=== PATIENT | male | born 1940 | race Caucasian/White ===

== ENCOUNTER 2020-01-06 14:19 | Inpatient (IN) | payer OTHER, SELFPAY ==
[~2020-01-06] VITALS: Ht 182.9 cm; Wt 59.0 kg
[2020-01-06 14:36] VITALS: Ht 182.9 cm; Wt 59.0 kg
[2020-01-06 15:29] LABS: ALKALINE PHOSPHATASE 57 U/L (46-116); ALT/SGPT 34 U/L (16-63); AST/SGOT 46 U/L (15-37); BILIRUBIN TOTAL 0.8 mg/dL (0.20-1.00); CALCIUM 9.1 mg/dL (8.5-10.1); CARBON DIOXIDE 22.3 mmol/L (21-32); CHLORIDE SERUM 103 mmol/L (98-107); GLUCOSE SERUM 154 mg/dL (74-106); LACTIC DEHYDROGENASE (LDH) 298 U/L (100-190); SODIUM SERUM 140 mmol/L (136-145); TOTAL PROTEIN, SERUM 7.2 g/dL (6.4-8.2)
[2020-01-06 15:32] LABS: ALBUMIN 2.7 g/dL (3.4-5.0); CREATININE SERUM 5.7 mg/dL (0.7-1.3)
[2020-01-06 15:39] LABS: PLATELET COUNT 127 x10^3mcL (130-400); RED CELL DISTRIBUTION WIDTH 16.7 % (11.5-14.5)
[2020-01-06 15:40] LABS: UA SPECIFIC GRAVITY <=1.005 (1.005-1.035); microscopic required? YES; urine erythrocyte 3+ (NEGATIVE)
[2020-01-06 16:36] LABS: C REACTIVE PROTEIN 45.4 mg/dL (<=0.9)
[2020-01-06 16:40] LABS: BAND NEUTROPHIL 9 % (0-10); BASOPHIL 0 % (0-2); MONOCYTE 3 % (0-7); SEGMENTED NEUTROPHILS 86 % (37-75); rbc morphology (normal/abnorm) ABNORMAL (NORMAL)
[2020-01-06 16:41] LABS: PLATELET MORPHOLOGY PLATELETS DECREASED
[2020-01-06 21:15] LABS: MAGNESIUM 1.9 mg/dL (1.8-2.4)
[2020-01-06 21:17] LABS: CHOLESTEROL/HDL RATIO 3.7
[2020-01-06 23:01] VITALS: BP 83/52
[2020-01-07 06:58] LABS: BASOPHIL % 0.2 % (0-2)
[2020-01-07 07:14] LABS: PLATELET COUNT 110 x10^3mcL (130-400); RED CELL DISTRIBUTION WIDTH 16.8 % (11.5-14.5)
[2020-01-07 07:53] LABS: CALCIUM 8.6 mg/dL (8.5-10.1); CARBON DIOXIDE 17.1 mmol/L (21-32); CHLORIDE SERUM 106 mmol/L (98-107); GLUCOSE SERUM 129 mg/dL (74-106); POTASSIUM SERUM 4.9 mmol/L (3.5-5.1); SODIUM SERUM 140 mmol/L (136-145)
[2020-01-07 07:54] LABS: CREATININE SERUM 5.2 mg/dL (0.7-1.3)
[2020-01-07 08:00] VITALS: BP 105/60
[2020-01-07 12:00] VITALS: BP 121/65
[2020-01-07] MEDS ORDERED: ASPIR 8181 MG PO (12:42)
[2020-01-07] MEDS ORDERED: FINASTERIDE1 MG PO (12:44)
[2020-01-07] MEDS ORDERED: ATORVASTATIN CA40 M1 PO (12:44)
[2020-01-07] MEDS ORDERED: COUMADIN3 MG PO (12:45)
[2020-01-07] MEDS ORDERED: TOPROL XL200 MG (12:46)
[2020-01-07] MEDS ORDERED: REFRESH OPTIVE15 M1 OU (12:49)
[2020-01-07] MEDS ORDERED: CALCIUM 500 MG1 EAC2 PO (12:52)
[2020-01-07] MEDS ORDERED: FLOMAX0.4 MG PO (12:53)
[2020-01-07 16:00] VITALS: BP 120/58
[2020-01-07 20:00] VITALS: BP 101/49
[2020-01-08] VITALS (7 sets, daily range): BP systolic 112–131; BP diastolic 56–72
[2020-01-08 09:16] LABS: PLATELET COUNT 74 x10^3mcL (130-400); RED CELL DISTRIBUTION WIDTH 16.9 % (11.5-14.5)
[2020-01-08 09:46] LABS: ALKALINE PHOSPHATASE 78 U/L (46-116); ALT/SGPT 123 U/L (16-63); AST/SGOT 172 U/L (15-37); BILIRUBIN TOTAL 0.89 mg/dL (0.20-1.00); CALCIUM 7.9 mg/dL (8.5-10.1); CARBON DIOXIDE 23.3 mmol/L (21-32); CHLORIDE SERUM 109 mmol/L (98-107); GLUCOSE SERUM 93 mg/dL (74-106); PHOSPHOROUS 4.5 mg/dL (2.5-4.9); POTASSIUM SERUM 3.5 mmol/L (3.5-5.1); SODIUM SERUM 146 mmol/L (136-145)
[2020-01-08 09:47] LABS: ALBUMIN 2.1 g/dL (3.4-5.0); CREATININE SERUM 4.3 mg/dL (0.7-1.3); TOTAL PROTEIN, SERUM 5.8 g/dL (6.4-8.2)
[2020-01-08 11:50] LABS: rbc morphology (normal/abnorm) ABNORMAL (NORMAL)
[2020-01-09 04:38] VITALS: BP 139/73
[2020-01-09 08:13] VITALS: BP 131/62
[2020-01-09 09:29] LABS: BASOPHIL % 0.3 % (0-2)
[2020-01-09 09:36] LABS: PLATELET COUNT 61 x10^3mcL (130-400); RED CELL DISTRIBUTION WIDTH 16.7 % (11.5-14.5)
[2020-01-09 09:55] LABS: CALCIUM 7.4 mg/dL (8.5-10.1); CARBON DIOXIDE 30.7 mmol/L (21-32); CHLORIDE SERUM 110 mmol/L (98-107); CREATININE SERUM 3.4 mg/dL (0.7-1.3); GLUCOSE SERUM 133 mg/dL (74-106); SODIUM SERUM 149 mmol/L (136-145)
[2020-01-09 10:00] LABS: POTASSIUM SERUM 2.8 mmol/L (3.5-5.1)
[2020-01-09 19:10] VITALS: BP 132/72
[2020-01-09 20:05] VITALS: BP 116/67
[2020-01-10 05:05] VITALS: BP 124/70
[2020-01-10 07:30] LABS: BASOPHIL % 0.1 % (0-2)
[2020-01-10 07:40] VITALS: BP 138/65
[2020-01-10 07:52] LABS: ALKALINE PHOSPHATASE 82 U/L (46-116); ALT/SGPT 78 U/L (16-63); AST/SGOT 56 U/L (15-37); BILIRUBIN TOTAL 0.57 mg/dL (0.20-1.00); CALCIUM 7.7 mg/dL (8.5-10.1); CARBON DIOXIDE 28.8 mmol/L (21-32); CHLORIDE SERUM 108 mmol/L (98-107); GLUCOSE SERUM 132 mg/dL (74-106); SODIUM SERUM 146 mmol/L (136-145)
[2020-01-10 07:54] LABS: RED CELL DISTRIBUTION WIDTH 16.3 % (11.5-14.5)
[2020-01-10 07:55] LABS: ALBUMIN 1.8 g/dL (3.4-5.0); TOTAL PROTEIN, SERUM 5.4 g/dL (6.4-8.2)
[2020-01-10 07:56] LABS: PLATELET COUNT 43 x10^3mcL (130-400)
[2020-01-10 07:58] LABS: POTASSIUM SERUM 2.9 mmol/L (3.5-5.1)
[2020-01-10 11:58] VITALS: BP 106/63
[2020-01-10 16:09] VITALS: BP 120/69
[2020-01-10 20:42] VITALS: BP 122/59
[2020-01-11 06:04] VITALS: BP 113/61
[2020-01-11 07:26] LABS: ALBUMIN 1.7 g/dL (3.4-5.0); ALKALINE PHOSPHATASE 99 U/L (46-116); AST/SGOT 45 U/L (15-37); BILIRUBIN TOTAL 0.56 mg/dL (0.20-1.00); CALCIUM 7.7 mg/dL (8.5-10.1); CARBON DIOXIDE 26.2 mmol/L (21-32); CHLORIDE SERUM 107 mmol/L (98-107); CREATININE SERUM 2.7 mg/dL (0.7-1.3); GLUCOSE SERUM 85 mg/dL (74-106); MAGNESIUM 1.6 mg/dL (1.8-2.4); PHOSPHOROUS 2.7 mg/dL (2.5-4.9); POTASSIUM SERUM 3.5 mmol/L (3.5-5.1); SODIUM SERUM 144 mmol/L (136-145); TOTAL PROTEIN, SERUM 5.2 g/dL (6.4-8.2)
[2020-01-11 07:28] LABS: ALT/SGPT 59 U/L (16-63)
[2020-01-11 07:39] LABS: RED CELL DISTRIBUTION WIDTH 16.2 % (11.5-14.5)
[2020-01-11 07:40] LABS: BASOPHIL % 0 % (0-2)
[2020-01-11 07:41] LABS: PLATELET COUNT 31 x10^3mcL (130-400)
[2020-01-11 08:22] VITALS: BP 121/65
[2020-01-11 11:25] VITALS: BP 126/63
[2020-01-11 13:08] LABS: CK-BB 4 % (0); CK-MB 0 % (0-3); CK-MM 96 % (97-100); MACRO TYPE 1 0 % (Not Observed); MACRO TYPE 2 0 % (Not Observed)
[2020-01-11 17:39] VITALS: BP 114/61
[2020-01-11 21:12] VITALS: BP 104/62
[2020-01-12 06:02] VITALS: BP 135/78
[2020-01-12 07:25] LABS: BASOPHIL % 0.1 % (0-2)
[2020-01-12 07:36] LABS: CALCIUM 7.8 mg/dL (8.5-10.1); CARBON DIOXIDE 26.3 mmol/L (21-32); CHLORIDE SERUM 108 mmol/L (98-107); CREATININE SERUM 2.3 mg/dL (0.7-1.3); GLUCOSE SERUM 91 mg/dL (74-106); POTASSIUM SERUM 3.8 mmol/L (3.5-5.1); SODIUM SERUM 143 mmol/L (136-145)
[2020-01-12 07:48] VITALS: BP 134/68
[2020-01-12 08:17] LABS: PLATELET COUNT 58 x10^3mcL (130-400)
[2020-01-12 11:42] VITALS: BP 121/60
[2020-01-12 15:59] VITALS: BP 119/59
[2020-01-12 20:01] VITALS: BP 121/55
[2020-01-13 05:50] VITALS: BP 128/69
[2020-01-13 07:55] LABS: BASOPHIL % 0.2 % (0-2); PLATELET COUNT 78 x10^3mcL (130-400); RED CELL DISTRIBUTION WIDTH 15.9 % (11.5-14.5)
[2020-01-13 07:59] LABS: CALCIUM 7.7 mg/dL (8.5-10.1); CARBON DIOXIDE 24.1 mmol/L (21-32); CHLORIDE SERUM 108 mmol/L (98-107); CREATININE SERUM 2.2 mg/dL (0.7-1.3); GLUCOSE SERUM 99 mg/dL (74-106); POTASSIUM SERUM 4.1 mmol/L (3.5-5.1); SODIUM SERUM 143 mmol/L (136-145)
[2020-01-13 08:27] VITALS: BP 124/67
[2020-01-13 12:14] VITALS: BP 101/60
[2020-01-13 17:03] VITALS: BP 138/67
[2020-01-13 22:23] VITALS: BP 117/45
[2020-01-14 05:55] VITALS: BP 115/67
[2020-01-14 07:49] LABS: CALCIUM 7.6 mg/dL (8.5-10.1); CHLORIDE SERUM 109 mmol/L (98-107); CREATININE SERUM 1.8 mg/dL (0.7-1.3); GLUCOSE SERUM 90 mg/dL (74-106); POTASSIUM SERUM 4.4 mmol/L (3.5-5.1); SODIUM SERUM 140 mmol/L (136-145)
[2020-01-14 08:12] LABS: BASOPHIL % 4.1 % (0-2); PLATELET COUNT 108 x10^3mcL (130-400); RED CELL DISTRIBUTION WIDTH 15.8 % (11.5-14.5)
[2020-01-14 08:13] VITALS: BP 101/62
[2020-01-14 12:05] VITALS: BP 109/47
[2020-01-14 16:37] VITALS: BP 108/60
[2020-01-14 21:33] VITALS: BP 116/61
[2020-01-15 05:43] VITALS: BP 99/54
[2020-01-15 07:05] LABS: CALCIUM 8.3 mg/dL (8.5-10.1); CARBON DIOXIDE 22.5 mmol/L (21-32); CHLORIDE SERUM 108 mmol/L (98-107); CREATININE SERUM 1.8 mg/dL (0.7-1.3); GLUCOSE SERUM 90 mg/dL (74-106); POTASSIUM SERUM 4.9 mmol/L (3.5-5.1); SODIUM SERUM 140 mmol/L (136-145)
[2020-01-15 07:10] LABS: BASOPHIL % 0.5 % (0-2); PLATELET COUNT 175 x10^3mcL (130-400)
[2020-01-15 07:17] LABS: RED CELL DISTRIBUTION WIDTH 16.1 % (11.5-14.5)
[2020-01-15 07:18] VITALS: BP 109/49
[2020-01-15 14:08] VITALS: BP 109/49
== END 2020-01-15 18:58 | disposition other institution (70) | DRG 871 ==
LOC: ED 14:19 → MU 17:59 → IC 17:59 → DU 01-08 17:42 → MU 01-11 06:46
PROVIDERS: Emergency Medicine; Internal Medicine; ADMIT Internal Medicine; ATTEND Internal Medicine
PROC: 30233R1 Transfusion of Nonautologous Platelets into Peripheral Vein, Percutaneous Approach (ICD-10-PCS; principal; 2020-01-11)
DX: A41.9 Sepsis, unspecified organism (principal); R65.21 Severe sepsis with septic shock; N17.9 Acute kidney failure, unspecified; N39.0 Urinary tract infection, site not specified; M62.82 Rhabdomyolysis; D68.9 Coagulation defect, unspecified; I48.91 Unspecified atrial fibrillation; E78.5 Hyperlipidemia, unspecified; N18.9 Chronic kidney disease, unspecified; I95.9 Hypotension, unspecified; N40.0 Benign prostatic hyperplasia without lower urinary tract symptoms; E87.6 Hypokalemia; I12.9 Hypertensive chronic kidney disease with stage 1 through stage 4 chronic kidney disease, or unspecified chronic kidney disease; D63.8 Anemia in other chronic diseases classified elsewhere; I25.10 Atherosclerotic heart disease of native coronary artery without angina pectoris; D69.6 Thrombocytopenia, unspecified; Z20.828 Contact with and (suspected) exposure to other viral communicable diseases; Z79.899 Other long term (current) drug therapy; Z79.82 Long term (current) use of aspirin; Z88.8 Allergy status to other drugs, medicaments and biological substances; Z79.01 Long term (current) use of anticoagulants; Z79.891 Long term (current) use of opiate analgesic; I25.2 Old myocardial infarction
CPT/HCPCS: 36600; 82962; 83880; 85378; 87804; 97110-GP; 97530-GP; G0378; J0696; J1160; J2270; J2543; J3475; J3490; J7030; J7040; J7050; P9035; P9047; Q0092; U0003-CS